=== PATIENT | female | born 1960 | race Caucasian/White ===

== ENCOUNTER → 2020-03-22 | Outpatient (CLI) | payer BC | LOC: MAMO 01-07 08:30 | DX: Z12.31 Encounter for screening mammogram for malignant neoplasm of breast (principal) | CPT/HCPCS: 77063; 77067 ==

== ENCOUNTER → 2020-04-26 | Outpatient (CLI) | payer BC | LOC: ECHO 10:42 | DX: R00.2 Palpitations (principal); I08.1 Rheumatic disorders of both mitral and tricuspid valves | CPT/HCPCS: ECHO; 93306 ==

== ENCOUNTER 2021-02-03 14:43 | Emergency (ER) | payer BC ==
[2021-02-03] MEDS ORDERED: HYDROCODON-ACE1 EAC4 PO (16:33)
== END 2021-02-03 16:09 | disposition home or self-care (01) ==
LOC: ER1 14:43
DX: S52.502A Unspecified fracture of the lower end of left radius, initial encounter for closed fracture (principal); S52.602A Unspecified fracture of lower end of left ulna, initial encounter for closed fracture; W01.0XXA Fall on same level from slipping, tripping and stumbling without subsequent striking against object, initial encounter
CPT/HCPCS: 29125; 73110; 99283

== ENCOUNTER 2021-02-03 17:57 | Emergency (ER) | payer BC ==
[~2021-02-03 17:57] MED LIST: HYDROCODON-ACE1 EAC4 PO
== END 2021-02-03 20:39 | disposition home or self-care (01) ==
LOC: ER1 17:57
DX: S52.502A Unspecified fracture of the lower end of left radius, initial encounter for closed fracture (principal); S52.602A Unspecified fracture of lower end of left ulna, initial encounter for closed fracture; S52.532A Colles' fracture of left radius, initial encounter for closed fracture; W01.0XXA Fall on same level from slipping, tripping and stumbling without subsequent striking against object, initial encounter
CPT/HCPCS: 25605; 73110; 94760; 99283; J2704

== ENCOUNTER → 2021-06-13 | Outpatient (CLI) | payer BC | LOC: MAMO 09:09 | DX: Z12.31 Encounter for screening mammogram for malignant neoplasm of breast (principal) | CPT/HCPCS: 77063; 77067 ==